=== PATIENT | female | born 1950 | race Caucasian/White ===

== ENCOUNTER 2017-02-24 08:52 | Day surgery (SDC) | payer MEDICARE, BC ==
[~2017-02-24 08:52] MED LIST: ACETAMINOPHEN 325 MG TABLET PO PRN; ACETYLCHOLINE CHLORIDE 20 DROP KIT IO PRN; BUPIVACAINE HCL/PF 30 ML VIAL IJ PRN; CYCLOPENTOLATE HCL 20 DROP BTL RIGHTEYE PRN; DEXTROSE 5%-0.5 NORMAL SALINE 1,000 ML IV PRN; EPINEPHrine 1 MG/ML AMPUL IO PRN; HYALURONATE SODIUM 0.4 ML DISP.SYRIN IO PRN; HYALURONATE SODIUM 0.85 ML DISP.SYRIN IO PRN; LIDOCAINE HCL/PF 200 MG/5 ML AMPUL TP PRN; LIDOCAINE HCL/PF 5 ML VIAL IO PRN; NORMAL SALINE 3 ML BOX IV PRN; TETRACAINE HCL 150 DROP BTL OP PRN
[2017-02-24] MEDS: PHENYLEPHRINE HCL 50 DROP BTL RIGHTEYE PRN ×3 (09:35→10:03)
[2017-02-24] MEDS: TROPICAMIDE 150 DROP BTL RIGHTEYE PRN ×3 (09:36→10:03)
[2017-02-24 12:01] VITALS: BP 115/53
== END 2017-02-24 08:53 | disposition home or self-care (01) ==
LOC: AMB 08:52
PROVIDERS: ATTEND Ophthalmology
PROC: 08RJ3JZ Replacement of Right Lens with Synthetic Substitute, Percutaneous Approach (ICD-10-PCS; principal; 2017-02-24 10:15)
DX: H26.9 Unspecified cataract (principal); I10 Essential (primary) hypertension; K21.9 Gastro-esophageal reflux disease without esophagitis; Z68.22 Body mass index [BMI] 22.0-22.9, adult

== ENCOUNTER 2017-03-24 12:30 | Day surgery (SDC) | payer MEDICARE, BC ==
[~2017-03-24 12:30] MED LIST changes: +CYCLOPENTOLATE HCL 20 DROP BTL LEFTEYE PRN; -CYCLOPENTOLATE HCL 20 DROP BTL RIGHTEYE PRN
[2017-03-24] MEDS: PHENYLEPHRINE HCL 50 DROP BTL LEFTEYE PRN ×3 (13:15→14:10)
[2017-03-24] MEDS: TROPICAMIDE 150 DROP BTL LEFTEYE PRN ×3 (13:15→14:10)
[2017-03-24] MEDS ORDERED: DEXTROSE 5%-0.5 NORMAL SALINE 1,000 ML IV ONE (13:50)
[2017-03-24 16:30] VITALS: BP 123/68
== END 2017-03-24 12:31 | disposition home or self-care (01) ==
LOC: AMB 12:30
PROVIDERS: ATTEND Ophthalmology
PROC: 08RK3JZ Replacement of Left Lens with Synthetic Substitute, Percutaneous Approach (ICD-10-PCS; principal; 2017-03-24 14:00)
DX: H26.8 Other specified cataract (principal); I10 Essential (primary) hypertension; K21.9 Gastro-esophageal reflux disease without esophagitis; Z68.22 Body mass index [BMI] 22.0-22.9, adult